=== PATIENT | male | born 1955 | race Caucasian/White ===

== ENCOUNTER 2024-12-12 06:58 | Outpatient (CLI) | payer OTHER ==
[2024-12-12 07:46] LABS: BASO % 1.2 % (0.1-1.2); EOS % 1.7 % (0.7-7.0); HEMATOCRIT 31.7 % (40.1-51.0); HEMOGLOBIN 10.1 g/dL (13.7-17.5); LYMPH # 1.68 (1.18-3.74); LYMPH % 28.2 % (19.3-53.1); MEAN CORPUSCULAR HEMOGLOBIN 31.5 pg (25.6-32.2); MONO # 0.45 (0.24-0.82); MONO % 7.6 % (4.7-12.5); NEUT # 3.65 (1.56-6.13); NEUT % 61.1 % (34.0-71.1); PLATELET COUNT 311 K/uL (163-369); RED BLOOD COUNT 3.21 M/uL (4.63-6.08); RED CELL DISTRIBUTION WIDTH 13.5 % (11.6-14.4)
[2024-12-12 08:12] LABS: PARTIAL THROMBOPLASTIN TIME 26.9 SECONDS (22.0-34.0); PROTHROMBIN TIME 10.9 SECONDS (9.0-11.5)
[2024-12-12 08:16] LABS: PH,URINE 5.5 (5.0-8.0); URINE APPEARANCE Clear; URINE BILIRRUBIN Negative (NEGATIVE); URINE BLOOD Negative; URINE COLOR Yellow; URINE GLUCOSE Negative (NEGATIVE); URINE KETONE Negative (NEGATIVE); URINE LEUKOCYTE Negative; URINE NITRATE Negative; URINE PROTEIN Negative (NEGATIVE); URINE UROBILINOGEN 0.2 E.U./dl
[2024-12-12 08:25] LABS: URINE BACTERIA 0 uL (0.0-1933); URINE CAST 0.14 uL (0.0-1.40); URINE EPITHELIAL CELLS 0.6 uL (0.0-38.8); URINE RBC 0.5 uL (0.0-20.8); URINE WBC 0.7 uL (0.0-23.2)
[2024-12-12 08:36] LABS: ALBUMIN 4.2 gm/dL (3.4-5.0); BILIRUBIN TOTAL 0.58 mg/dL (0.3-1.2); CALCIUM 9.8 mg/dL (8.5-10.1); CREATININE SERUM 1.35 mg/dL (0.70-1.30); GFR 52.25; GLOBULINA 3.5 G/DL (2.4-3.5); POTASSIUM 5.5 mEq/L (3.5-5.1); TOTAL PROTEIN 7.7 gm/dL (6.4-8.2)
[2024-12-12 08:54] LABS: COL EPI 120 SECONDS (82-175)
== END 2024-12-12 07:07 | disposition home or self-care (01) ==
LOC: LAB 06:58
PROVIDERS: ATTEND Orthopaedic Surgery
DX: D64.9 Anemia, unspecified (principal); E88.89 Other specified metabolic disorders; D68.8 Other specified coagulation defects; N39.0 Urinary tract infection, site not specified; Z22.322 Carrier or suspected carrier of Methicillin resistant Staphylococcus aureus; E11.9 Type 2 diabetes mellitus without complications; Z76.89 Persons encountering health services in other specified circumstances

== ENCOUNTER 2025-04-05 08:00 | Outpatient (CLI) | payer OTHER ==
[2025-04-05 12:35] LABS: BASO % 1.0 % (0.1-1.2); EOS # 0.04 (0.04-0.54); EOS % 0.6 % (0.7-7.0); LYMPH # 1.56 (1.18-3.74); LYMPH % 22.5 % (19.3-53.1); MEAN PLATELET VOLUME 9.30 fl (9.4-12.4); MONO # 0.53 (0.24-0.82); MONO % 7.6 % (4.7-12.5); NEUT # 4.71 (1.56-6.13); NEUT % 68.0 % (34.0-71.1); RED CELL DISTRIBUTION WIDTH 15.5 % (11.6-14.4)
[2025-04-05] MEDS ORDERED: IRBESARTAN150 MG PO (12:42)
[2025-04-05] MEDS ORDERED: NORVASC5 MG PO (12:43)
[2025-04-05] MEDS ORDERED: HYDROCHLOROTHIA25 MG PO (12:43)
[2025-04-05] MEDS ORDERED: LEVO-T88 MCG PO (12:43)
[2025-04-05] MEDS ORDERED: ZOCOR20 MG PO (12:43)
[2025-04-05 12:44] VITALS: BP 160/82
[2025-04-05] MEDS ORDERED: GEMFIBROZIL600 MG PO (12:44)
[2025-04-05 12:57] LABS: INR 1.02
[2025-04-05 13:09] LABS: URINE APPEARANCE Clear; URINE BILIRRUBIN Negative (NEGATIVE); URINE BLOOD Negative; URINE COLOR Yellow; URINE GLUCOSE Negative (NEGATIVE); URINE KETONE Negative (NEGATIVE); URINE LEUKOCYTE Negative; URINE NITRATE Negative; URINE PROTEIN Negative (NEGATIVE); URINE UROBILINOGEN 0.2 E.U./dl
[2025-04-05 13:13] LABS: URINE BACTERIA 4.8 uL (0.0-1933)
[2025-04-05 13:24] LABS: ALT/SGPT 30.0 U/L (12-78); AST/SGOT 24.0 U/L (15-37); BILIRUBIN TOTAL 0.66 mg/dL (0.3-1.2); BUN CREA RATIO 22.0 (7.0-25.0); CREATININE SERUM 1.22 mg/dL (0.70-1.30); GFR 58.72; GLOBULINA 4.1 G/DL (2.4-3.5); GLUCOSE FASTING 121.0 mg/dL (65-100); OSMOLALITY SERUM 284.0 MOSM/KG (275-295)
[2025-04-05 13:40] LABS: URINE CAST 0.14 uL (0.0-1.40); URINE EPITHELIAL CELLS 0.1 uL (0.0-38.8); URINE RBC 1.4 uL (0.0-20.8); URINE WBC 1.3 uL (0.0-23.2)
[2025-04-05 14:01] LABS: COL EPI 146 SECONDS (82-175)
== END 2025-04-05 08:01 | disposition home or self-care (01) ==
LOC: CANPREIN → RAD 08:00 → SURH 04-16 07:00 → EDSTATUS 04-16 07:00 → CIR.AMB 04-16 07:00
PROVIDERS: ATTEND Orthopaedic Surgery
DX: D64.9 Anemia, unspecified (principal); E88.89 Other specified metabolic disorders; D68.8 Other specified coagulation defects; N39.0 Urinary tract infection, site not specified; Z22.322 Carrier or suspected carrier of Methicillin resistant Staphylococcus aureus; E11.9 Type 2 diabetes mellitus without complications; Z76.89 Persons encountering health services in other specified circumstances